=== PATIENT | female | born 1985 | race Caucasian/White ===

== ENCOUNTER → 2017-04-12 | Outpatient (CLI) | payer MEDICAID ==
[~2017-04-12] MED LIST: ACYCLOVIR200 MG PO; ADVIL200 MG PO; AMOXICILLIN 8751 TAB PO; ANUSOL-HC SUPPO25 MG RC; ATARAX 25MG25 MG/TAB PO; BCP TD; COSENTYX P150 MG/1 M SQ; COUMADIN5 MG PO; DEPO-TESTOS100 MG/ML IM; DOXYCYCLINE 10100 MG PO; DUO-KAPS1 CAP PO; ENBREL50 MG/ML SC; EPI-PEN1 MG/ML MR; FOLIC ACID 11 MG/TA1 PO; HUMIRA40 MG/0.8 MR; K-DUR20 MEQ PO; LIBRIUM 25M25 MG/CAP PO; LOMOTIL 0.025 M1 TAB PO; LORTAB 5/500 501 TAB PO; LOVENOX120 MG/0.8 SC; MACROBID 1100 MG/CAP PO; METHOTREXA2.5 MG/TAB PO; NEURONTIN300 MG/CAP PO; NEURONTIN600 MG/TAB PO; NORCO 325 MG-51 TAB PO; PERCOCET 325 MG1 TA2 PO; PHENERGAN 25 TA25 MG PO; PREDNISONE10 MG PO; PROAIR HFA0.09 MG/AC IH; STELARA90 MG/ML SC; VALTREX1 GM PO; VICODIN 5/5001 UDTAB PO; VITAMIN B1100 MG PO; XANAX 0.5MG0.5 MG PO; ZESTRIL 10MG10 MG PO; [UNRECOGNIZED DRUG - REMARK]; embrel
[2017-04-12 10:30] LABS: COLLECTION METHOD CLEAN CATCH
[2017-04-12 10:59] LABS: PH 6 (5-8); URINE APPEARANCE Clear; URINE BACTERIA None Seen /hpf; URINE BILIRUBIN Negative (NEGATIVE); URINE BLOOD Negative (NEGATIVE); URINE COLOR Yellow; URINE GLUCOSE Negative (NEGATIVE); URINE KETONE Negative (NEGATIVE); URINE LEUKOCYTE ESTERASE Negative (NEGATIVE); URINE PROTEIN(semi-quant) Negative (NEGATIVE); URINE RBC 0-2 /hpf; URINE UROBILINOGEN Negative (NEGATIVE); URINE WBC 0-2 /hpf
== END ==
LOC: COL.LAB 09:54
PROVIDERS: Physician Assistant Medical
DX: Z01.812 Encounter for preprocedural laboratory examination (principal); R82.71 Bacteriuria

== ENCOUNTER 2017-07-05 04:22 | Emergency (ER) | payer MEDICAID ==
[~2017-07-05] VITALS: Ht 12.7 cm; Wt 123.2 kg
[2017-07-05 04:27] VITALS: BP 141/94; TEMP 100.4
[2017-07-05] MEDS ORDERED: PREDNISONE20 MG PO (05:12)
[2017-07-05] MEDS ORDERED: EPIPEN 2-PAK1 MG/ML IM (05:12)
[2017-07-05] MEDS ORDERED: CLEOCIN HCL300 MG PO (05:58)
[2017-07-05 07:33] VITALS: PULSE 126
== END 2017-07-05 07:02 | disposition home or self-care (01) ==
LOC: COL.ER 04:22
DX: L50.8 Other urticaria (principal); F17.210 Nicotine dependence, cigarettes, uncomplicated; Z86.718 Personal history of other venous thrombosis and embolism; Z90.710 Acquired absence of both cervix and uterus; Z90.49 Acquired absence of other specified parts of digestive tract
CPT/HCPCS: J0171; J1200; J2930; J7030

== ENCOUNTER → 2017-12-16 | Outpatient (CLI) | payer MEDICAID ==
[~2017-12-16] MED LIST changes: +CLEOCIN HCL300 MG PO; +EPIPEN 2-PAK1 MG/ML IM; +PREDNISONE20 MG PO
== END ==
LOC: ZCOL.LAB 16:04
DX: N61.1 Abscess of the breast and nipple (principal)

== ENCOUNTER 2018-06-07 13:47 | Emergency (ER) | payer MEDICAID ==
[~2018-06-07] VITALS: Ht 165.1 cm; Wt 122.7 kg
[2018-06-07 14:05] VITALS: TEMP 98.6
[2018-06-07] MEDS ORDERED: TRIAMCINOLONE A15 G3 TP (16:00)
[2018-06-07] MEDS ORDERED: PREDNISONE20 MG PO (16:00)
[2018-06-07 16:23] VITALS: BP 124/76; PULSE 94
== END 2018-06-07 16:24 | disposition home or self-care (01) ==
LOC: COL.ER 13:47
DX: L40.8 Other psoriasis (principal); F32.9 Major depressive disorder, single episode, unspecified; F17.210 Nicotine dependence, cigarettes, uncomplicated; F12.90 Cannabis use, unspecified, uncomplicated; Z90.49 Acquired absence of other specified parts of digestive tract; Z90.710 Acquired absence of both cervix and uterus
CPT/HCPCS: J1100; J1200

== ENCOUNTER 2018-08-09 16:32 | Emergency (ER) | payer MEDICAID | END 2018-08-09 20:31 | disposition home or self-care (01) | LOC: COL.ER 16:32 | DX: M79.662 Pain in left lower leg (principal); F17.210 Nicotine dependence, cigarettes, uncomplicated; F12.90 Cannabis use, unspecified, uncomplicated; Z96.22 Myringotomy tube(s) status; Z90.49 Acquired absence of other specified parts of digestive tract; Z86.718 Personal history of other venous thrombosis and embolism; Z90.710 Acquired absence of both cervix and uterus ==

== ENCOUNTER 2019-04-18 02:38 | Emergency (ER) | payer MEDICAID ==
[~2019-04-18] VITALS: Ht 165.1 cm; Wt 100.0 kg
[~2019-04-18 02:38] MED LIST changes: +TRIAMCINOLONE A15 G3 TP
[2019-04-18 03:03] VITALS: BP 130/78; TEMP 98.6
[2019-04-18] MEDS ORDERED: PREDNISONE20 MG PO (03:31)
[2019-04-18] MEDS ORDERED: BENADRYL25 M2 PO (03:31)
[2019-04-18] MEDS ORDERED: ATARAX50 MG PO (04:29)
[2019-04-18 04:36] VITALS: PULSE 94
== END 2019-04-18 04:36 | disposition home or self-care (01) ==
LOC: COL.ER 02:38
DX: T36.8X5A Adverse effect of other systemic antibiotics, initial encounter (principal)
CPT/HCPCS: J7512